=== PATIENT | male | born 1955 | race Caucasian/White ===

== ENCOUNTER 2019-05-13 05:23 | Day surgery (SDC) | payer MEDICARE, OTHER ==
[2019-05-13] VITALS (21 sets, daily range): BP systolic 135–216; BP diastolic 82–124; PULSE 66–118; RESP 16–34; Ht 172.7 cm; Wt 74.0 kg
[~2019-05-13] VITALS: Ht 172.7 cm; Wt 74.0 kg
[~2019-05-13 05:23] MED LIST: ASPI-817 PO; ATOR-2 PO; CARV25TA79 PO; CLON-379 PO; DOXA4TAB3 PO; FENO134C PO; ISOS120T15 PO; LOSA50TA14 PO; MELO7.5T38 PO; NITR0.4T39 SL; PANT40TA4 PO; RANO10002 PO; TICA90TA PO; TRA100 PO
[2019-05-13] MEDS ORDERED: HEPARIN 1000 UNITS/ML 10 ML INJ ONE (06:50)
[2019-05-13] MEDS ORDERED: IODIXANOL LOCM 100 ML BTL ONE (06:50)
[2019-05-13] MEDS ORDERED: MIDAZOLAM 1 MG/ML 2 ML INJ ONE (06:50)
[2019-05-13] MEDS ORDERED: LIDOCAINE 1% (MDV) 20 ML INJ ONE (06:50)
[2019-05-13] MEDS ORDERED: VERAPAMIL 5 MG INJ ONE (06:50)
[2019-05-13] MEDS ORDERED: FENTAnyl 50 MCG/ML VIAL ONE (06:50)
[2019-05-13] MEDS ORDERED: NITROGLYCERIN (IC) 100 MCG/ML INJ ONE (06:51)
[2019-05-13] MEDS ORDERED: TICAGRELOR 90 MG TABLET ONE (08:11)
[2019-05-13] MEDS ORDERED: ASPIRIN 325 MG TAB ONE (08:11)
[2019-05-13] MEDS ORDERED: SOD CHLORIDE 0.9% 1,000 ML IV SCH (08:52)
[2019-05-13] MEDS ORDERED: hydrALAzine 20 MG INJ IV PRN (09:00)
[2019-05-13] MEDS ORDERED: ISOSORBIDE MONONITRATE(SR)60 MG TAB PO ONE (09:00)
[2019-05-13] MEDS ORDERED: BIVALIRUDIN 250MG /NS 50 ML 50 ML IVPB ONE (12:52)
== END 2019-05-13 15:08 | disposition home or self-care (01) ==
LOC: SDS 05:23
PROVIDERS: ATTEND Internal Medicine Interventional Cardiology
DX: I25.10 Atherosclerotic heart disease of native coronary artery without angina pectoris (principal); I25.2 Old myocardial infarction; J44.9 Chronic obstructive pulmonary disease, unspecified
CPT/HCPCS: 80048; 85025; 85610; 85730; 93005; 93458; 93571; C1725; C1760; C1887; C1894; J0360; J0583; J1644; J2250; J3010; Q9967